=== PATIENT | male | born 1990 | race Caucasian/White ===

== ENCOUNTER 2020-06-27 17:07 | Emergency (ER) | payer SELFPAY, OTHER ==
[~2020-06-27] VITALS: Ht 177.8 cm; Wt 81.8 kg
[2020-06-27 17:22] VITALS: BP 149/78
== END 2020-06-27 18:20 | disposition home or self-care (01) ==
LOC: ER 17:08
DX: Z03.818 Encounter for observation for suspected exposure to other biological agents ruled out (principal)
CPT/HCPCS: 36415; 99281; 99283

== ENCOUNTER 2020-10-15 00:15 | Emergency (ER) | payer OTHER ==
[~2020-10-15] VITALS: Ht 177.8 cm; Wt 81.8 kg
[2020-10-15 00:24] VITALS: BP 165/101
== END 2020-10-15 01:15 | disposition home or self-care (01) ==
LOC: ER 00:16
DX: R06.02 Shortness of breath (principal); R07.89 Other chest pain; R11.0 Nausea; Z20.828 Contact with and (suspected) exposure to other viral communicable diseases
CPT/HCPCS: 36415; 99282